=== PATIENT | male | born 1970 | race Caucasian/White ===

== ENCOUNTER 2018-11-28 18:33 | Emergency (ER) | payer SELFPAY ==
[2018-11-28 18:50] VITALS: BP 143/82; PULSE 86; RESP 16; TEMP 97.2; O2SAT 97
== END 2018-11-28 19:15 | disposition home or self-care (01) | DRG 125 ==
LOC: ED 18:33
DX: H10.9 Unspecified conjunctivitis (principal)
CPT/HCPCS: 99282